=== PATIENT | female | born 1955 | race Caucasian/White ===

== ENCOUNTER 2018-03-24 15:23 | Emergency (ER) | payer OTHER ==
[2018-03-24 15:30] VITALS: BP 148/79
--- NOTE | 2018-03-24 15:38 | EDPHY ---
H & P Time Seen by Provider: 03/24/18 15:38 HPI/ROS: CHIEF COMPLAINT: Acute right knee injury HISTORY OF PRESENT ILLNESS: 62-year-old female prior history of right ACL surgery visiting from [place], [place], [facility] yesterday afternoon she was running, sustained a mechanical fall impacting her bilateral knees however is only complaining of right anterior knee pain abrasion. She sustained other abrasion to her left anterior knee and bilateral feet however these are not causing her discomfort. PHYSICAL EXAM (Prior to examination, patient consented to physical exam, hands were washed and my usual and customary physical exam procedures followed) 1) GENERAL: Well-developed, well-nourished, alert and oriented. Appears to be in no acute distress. 2) HEAD: Normocephalic 3) HEENT: Pupils equal, round, reactive to light bilaterally. 4) LUNGS: Breathing comfortably. 5) MUSCULOSKELETAL: Exam of the right knee shows anterior knee abrasion, tenderness to palpation over the patella . Reproducible pain to same location with range of motion. No gross instability. Compartments are soft. 6) SKIN: Abrasion with no signs of infection 7) VASCULAR: DP,PT pulses and cap refill present and brisk distally DIFFERENTIAL DIAGNOSIS: in no particular order including but not limited to fracture, sprain, compartment syndrome, septic arthritis, DVT Procedure: Splint A knee immobilizer splint was applied by ER pilot plant technician. After application of the splint I returned and re-examined the patient. The splint was adequately immobilizing the joint and distal to the splint the patient's circulation and sensation were intact. Patient shows no signs of compartment syndrome. Was given orthopedic precautions. MEDICAL DECISION MAKING Re-evaluation with serial exams. Patient is neurovascularly intact with soft compartments. No evidence of compartment syndrome. Discussed with the patient her imaging results showing a transverse patellar fracture. This is a closed fracture. Discussed limitations of x-ray, notably that soft tissue injury is not ruled out. I do not think that emergent MRI is indicated especially [place] . She has been placed in a knee immobilizer, will need to follow up with orthopedic surgeon which he returns to [place] in a few days. Given copies of her x-rays. She feels comfortable being discharged. Usual and customary orthopedic precautions and instructions provided. All questions and concerns addressed by myself. I saw this patient independently based on established practice protocols. Care of patient under supervision of secondary supervising physician Dr Abarca. Smoking Status: Never smoked Constitutional: Initial Vital Signs Temperature (C) 37.0 C 03/24/18 15:28 Heart Rate 82 03/24/18 15:28 Respiratory Rate 16 03/24/18 15:28 Blood Pressure 148/79 H 03/24/18 15:28 O2 Sat (%) 97 03/24/18 15:28 O2 Delivery Mode Room Air Allergies/Adverse Reactions: doxycycline [From Vibramycin] Allergy (Verified 03/24/18 15:26) nitrofurantoin [From Macrodantin] Allergy (Verified 03/24/18 15:26) sulfamethoxazole [From Septra] Allergy (Verified 03/24/18 15:25) trimethoprim [From Septra] Allergy (Verified 03/24/18 15:25) Home Medications: Medication Instructions Recorded Aleve 03/24/18 Hydrocodone/APAP 5/325 [[place] 1 tab PO Q6 PRN #10 tab 03/24/18 5/325 (RX)] Prometrium 03/24/18 Valtrex 03/24/18 MDM/Departure - MDM Imaging: I viewed and interpreted images myself - Depart Disposition: Home, Routine, Self-Care Clinical Impression: Right patella fracture Qualifiers: Encounter type: initial encounter Fracture type: closed Fracture morphology: transverse Fracture alignment: nondisplaced Qualified Code(s): S82.034A - Nondisplaced transverse fracture of right patella, initial encounter for closed fracture Condition: Good Instructions: Knee Sprain (ED), Patellar Fracture (ED) Additional Instructions: Return to the ER immediately if you experience discoloration, have worsening pain, numbness, tingling, or any other symptoms that concern you. If you received x-rays in the emergency department today, be advised, that ligamentous , tendon, muscular, and other non-bony injury cannot be fully ruled out. Try to keep your affected extremity elevated above the level of your chest, and keep cold packs on the affected area, for the next 48 hours. Stand Alone Forms: Airline Excuse Prescriptions: Hydrocodone/APAP 5/325 [[place] 5/325 (RX)] 1 tab PO Q6 PRN #10 tab PRN Reason: Pain, Severe Referrals: Shree Sánchez MD [Medical Doctor] - 2-3 days, call for appt. You, may follow up with an orthopedic surgeon in [place] [Other] - As per Instructions
== END 2018-03-24 16:22 | disposition home or self-care (01) ==
DX: S82.034A Nondisplaced transverse fracture of right patella, initial encounter for closed fracture (principal); W18.39XA Other fall on same level, initial encounter; Y99.8 Other external cause status; Y93.02 Activity, running
CPT/HCPCS: L1830